=== PATIENT | female | born 1980 | race Caucasian/White ===

== ENCOUNTER 2018-06-07 15:15 | Emergency (ER) | payer OTHER ==
[2018-06-07 15:36] VITALS: BP 119/81; PULSE 80; TEMP 98.6; BMI 32.3
--- NOTE | 2018-06-07 15:38 | PDOC ---
Rapid Medical Evaluation Chief Complaint: Back Pain Time Seen by Provider: 06/07/18 15:32 Medical Evaluation: Allergies Allergy/AdvReac Type Severity Reaction Status Date / Time No Known Allergies Allergy Verified 06/07/18 15:25 Vital Signs Temp Pulse Resp BP Pulse Ox 98.6 F 80 16 119/81 99 06/07/18 15:26 06/07/18 15:26 06/07/18 15:26 06/07/18 15:26 06/07/18 15:26 06/07/18 15:33 I have performed a brief in-person evaluation of this patient. The patient presents with a chief complaint of: lower back pain s/p stepping off a stool yesterday with increased pain with ambulation. Denies fall or dizziness Pertinent physical exam findings: lower lumbar b/l tenderness worse with rotation of hip I have ordered the following:uhcg. x-ray of lumbasacral The patient will proceed to the ED for further evaluation. Discharge Disposition - Diagnosis Lumbago Qualifiers: Chronicity: acute Back pain laterality: bilateral Sciatica presence: without sciatica Qualified Code(s): M54.5 - Low back pain - Referrals - Patient Instructions - Post Discharge Activity
--- NOTE | 2018-06-07 16:31 | PDOC ---
History of Present Illness - General Chief Complaint: Back Pain Stated Complaint: BACK PAIN Time Seen by Provider: 06/07/18 15:32 History Source: Patient Exam Limitations: No Limitations Past History - Travel Traveled outside of the country in the last 30 days: No Close contact w/someone who was outside of country & ill: No - Past Medical History Allergies/Adverse Reactions: Allergies Allergy/AdvReac Type Severity Reaction Status Date / Time No Known Allergies Allergy Verified 06/07/18 15:25 Home Medications: Ambulatory Orders Cyclobenzaprine HCl [Flexeril -] 10 mg PO HS #10 tablet 06/07/18 Ibuprofen 800 mg PO TID #30 tablet 06/07/18 COPD: No CHF: No - Suicide/Smoking/Psychosocial Hx Smoking History: Never smoked Hx Alcohol Use: No Drug/Substance Use Hx: No Review of Systems - Review of Systems Able to Perform ROS?: Yes Comments:: 06/07/18 18:26 CONSTITUTIONAL: Absent: fever, chills, diaphoresis, generalized weakness, malaise, loss of appetite GASTROINTESTINAL: Absent: abdominal pain, abdominal distension, nausea, vomiting, diarrhea, constipation, melena, hematochezia GENITOURINARY: Absent: dysuria, frequency, urgency, hesitancy, hematuria, flank pain, genital pain MUSCULOSKELETAL: Present: low back pain Absent: arthralgia, joint swelling SKIN: Absent: rash, itching, pallor NEUROLOGIC: Absent: headache, focal weakness or paresthesias, dizziness, unsteady gait, seizure, mental status changes, bladder or bowel incontinence PSYCHIATRIC: Absent: anxiety, depression, suicidal or homicidal ideation, hallucinations. Is the patient limited Indonesian proficient: No *Physical Exam - Vital Signs Last Vital Signs Temp Pulse Resp BP Pulse Ox 98.6 F 80 16 119/81 99 06/07/18 15:26 06/07/18 15:26 06/07/18 15:26 06/07/18 15:26 06/07/18 15:26 - Physical Exam Comments: 06/07/18 18:26 GENERAL: Well developed, well nourished. Awake and alert. No acute distress. HEENT: Normocephalic, atraumatic. PERRLA, EOMI. No conjunctival pallor. Sclera are non- icteric. Moist mucous membranes. Oropharynx is clear. NECK: Supple. Full ROM. No JVD. Carotid pulses 2+ and symmetric, without bruits. No thyromegaly. No lymphadenopathy. CARDIOVASCULAR: Regular rate and rhythm. No murmurs, rubs, or gallops. Distal pulses are 2+ and symmetric. PULMONARY: No evidence of respiratory distress. Lungs clear to auscultation bilaterally. No wheezing, rales or rhonchi. ABDOMINAL: Soft. Non-tender. Non-distended. No rebound or guarding. No organomegaly. Normoactive bowel sounds. MUSCULOSKELETAL Normal range of motion at all joints. No bony deformities or tenderness. No CVA tenderness. EXTREMITIES: No cyanosis. No clubbing. No edema. No calf tenderness. SKIN: Warm and dry. Normal capillary refill. No rashes. No jaundice. NEUROLOGICAL: Alert, awake, appropriate. Cranial nerves 2-12 intact. No deficits to light touch and temperature in face, upper extremities and lower extremities. No motor deficits in the in face, upper extremities and lower extremities. Normoreflexic in the upper and lower extremities. Normal speech. Toes are down- going bilaterally. Gait is normal without ataxia. PSYCHIATRIC: Cooperative. Good eye contact. Appropriate mood and affect. ED Treatment Course - ADDITIONAL ORDERS Additional order review: Laboratory Results 06/07/18 16:03 Urine HCG, Qual Negative *DC/Admit/Observation/Transfer Diagnosis at time of Disposition: Lumbago Qualifiers: Chronicity: acute Back pain laterality: bilateral Sciatica presence: without sciatica Qualified Code(s): M54.5 - Low back pain - Discharge Dispostion Disposition: HOME Condition at time of disposition: Stable Decision to Admit order: No - Referrals Referrals: Johnny Dobbs MD [Primary Care Provider] - - Patient Instructions Printed Discharge Instructions: DI for Low Back Pain Additional Instructions: You have low back pain due to a muscle spasm. Please take ibuprofen 800 mg 3 times a day not to exceed 3000 mg a day. You were also prescribed Flexeril. Please take this medication every 8 hours for the first day. Then take the medication before you go to bed. Do not drive after taking this medication as it may make you sleepy. You may use warm compresses on your back to help with her symptoms. Please follow-up with your primary care doctor. If your symptoms do not resolve in 3-5 days, follow-up with orthopedics. A referral has been provided for you. Return to the emergency department if you have worsening back pain, bladder or bowel incontinence, numbness and tingling in her legs, changes in the way you walk, or any new or worsening symptoms. Tiene dolor lumbar debido a un espasmo muscular. [place] ibuprofeno 800 mg 3 veces al da sin exceder los 3000 mg al da. Tambin te recetaron Flexeril. [place] may medicamento cada 8 horas gurvinder el primer da. Luego tome el medicamento antes de irse a la cama. No maneje despus de gumaro may medicamento, ya que puede causarle sueo. Puede usar compresas tibias en la espalda para ayudar con pollo sntomas. Por favor antelmo un seguimiento con hardy mdico de atencin primaria. Si pollo sntomas no se resuelven en 3-5 [place], antelmo un seguimiento con ortopedia. Se garcia proporcionado maritza referencia para usted. Regrese a la isis de emergencias si tiene empeoramiento del dolor de espalda, incontinencia de la vejiga o el intestino, entumecimiento y hormigueo en las piernas, cambios en la forma en que camina, o cualquier sntoma nuevo o que empeora. - Post Discharge Activity Forms/Work/School Notes: Back to Work
[2018-06-07] MEDS ORDERED: KETOROLAC TROMETHAMINE 60 MG/2 ML VIAL IM ONE (16:58)
[2018-06-07] MEDS ORDERED: KETOROLAC TROMETHAMINE 60 MG/2 ML VIAL ONE (16:59)
== END 2018-06-07 18:38 | disposition home or self-care (01) ==
LOC: JER 15:15 → JERFT 15:15
PROC: 3E0233Z Introduction of Anti-inflammatory into Muscle, Percutaneous Approach (ICD-10-PCS; principal; 2018-06-07)
DX: M54.5 Low back pain (principal); M62.830 Muscle spasm of back
CPT/HCPCS: 72100-TC-FY; 84703; 96372; 99281-25